=== PATIENT | female | born 1955 | race Caucasian/White ===

== ENCOUNTER → 2016-07-30 | Outpatient (CLI) | payer OTHER ==
--- NOTE | 2016-08-04 09:34 | CT ---
EXAM DESCRIPTION: Abdomen/Pelvis w/wo Contrast CLINICAL HISTORY: MICROSCOPIC HEMATURIA R31.29 COMPARISON: None. TECHNIQUE: Transaxial images were obtained pre and post menstruation of intravenous contrast medium without oral contrast media. Sagittal and coronal reconstruction was performed. FINDINGS: The lung bases are clear. Hepatic steatosis is observed. No biliary ductal dilatation is observed. The gallbladder is normal in appearance. No adrenal masses are detected. The pancreas is normal in appearance. Imaging of the kidneys reveals no evidence of hydronephrosis mass cyst or calcification. Calcific atherosclerotic changes observed in the abdominal aorta without evidence of aneurysmal dilatation. No stones are seen along the course of the distal ureters. Diverticulosis of the colon is observed without evidence of diverticulitis. The patient is post hysterectomy. No free fluid is detected. The appendix is identified and is normal in appearance. Degenerative changes are observed in the lower lumbar spine. No bladder abnormality is detected. IMPRESSION: 1. Hepatic steatosis. 2. No urinary tract calcifications are observed. 3. Uncomplicated diverticulosis. 4. Hysterectomy Electronically signed by: Mansoor Jamison MD 08/04/2016 9:34 AM [facility]
== END | disposition home or self-care (01) ==
LOC: CT 08:02
PROVIDERS: ATTEND Family Medicine
DX: R31.29 Other microscopic hematuria (principal)

== ENCOUNTER → 2017-02-25 | Outpatient (CLI) | payer OTHER | END | disposition home or self-care (01) | LOC: GMAM 13:23 | PROVIDERS: ATTEND Family Medicine | DX: E03.9 Hypothyroidism, unspecified (principal); E55.9 Vitamin D deficiency, unspecified ==

== ENCOUNTER → 2017-10-19 | Outpatient (CLI) | payer OTHER | LOC: GMAM 12:19 | PROVIDERS: ATTEND Family Medicine | DX: N95.1 Menopausal and female climacteric states (principal); E03.9 Hypothyroidism, unspecified; E55.9 Vitamin D deficiency, unspecified ==

== ENCOUNTER → 2017-11-17 | Outpatient (CLI) | payer OTHER | LOC: GMAM 17:30 | PROVIDERS: ATTEND Family Medicine | DX: E34.9 Endocrine disorder, unspecified (principal) ==

== ENCOUNTER → 2018-05-05 | Outpatient (CLI) | payer OTHER ==
--- NOTE | 2018-05-07 08:04 | RAD ---
EXAM DESCRIPTION: Knee,Left Complete CLINICAL HISTORY: 63 years Female, KNEE PAIN TECHNIQUE: 4 views of the left knee were performed. COMPARISON: None available. FINDINGS: The visualized bones appear well mineralized. No acute fracture or dislocation. Tricompartmental osteoarthritis, worse in the medial tibiofemoral compartment. There is trace suprapatellar joint effusion. The soft tissues appear grossly unremarkable. IMPRESSION: Tricompartmental osteoarthritis, worse in the medial tibiofemoral compartment. Electronically signed by: Harsha Fenton MD 05/07/2018 8:02 AM [facility]
--- NOTE | 2018-05-07 08:05 | RAD ---
EXAM DESCRIPTION: Knee,Right Complete CLINICAL HISTORY: 63 years Female, KNEE PAIN TECHNIQUE: 4 views of the right knee were performed. COMPARISON: None available. FINDINGS: The visualized bones appear well mineralized. No acute fracture or dislocation.Tricompartmental osteoarthritis, worse in the medial tibiofemoral compartment. No evidence of suprapatellar joint effusion. The soft tissues appear grossly unremarkable. IMPRESSION: Tricompartmental osteoarthritis, worse in the medial tibiofemoral compartment. Electronically signed by: Harsha Fenton MD 05/07/2018 8:03 AM [facility]
--- NOTE | 2018-05-07 08:06 | RAD ---
EXAM DESCRIPTION: Pelvis CLINICAL HISTORY: 63 years Female, BILATERAL HIP PAIN COMPARISON: None. TECHNIQUE: AP radiograph of the pelvis was performed. FINDINGS: The pelvic ring appears grossly intact on this single AP radiograph. No acute fracture or dislocation. Bilateral sacroiliac joints appear normal. Bilateral hip joints appear normal. The visualized lumbo-sacral spine demonstrates mild degenerative changes. IMPRESSION: Single AP radiograph of the pelvis demonstrates grossly intact pelvic ring. Electronically signed by: Harsha Fenton MD 05/07/2018 8:[address] [facility]
== END ==
LOC: RAD 08:20
PROVIDERS: ATTEND Orthopaedic Surgery
DX: Z01.818 Encounter for other preprocedural examination (principal); M17.11 Unilateral primary osteoarthritis, right knee; M17.12 Unilateral primary osteoarthritis, left knee; M25.561 Pain in right knee; M25.562 Pain in left knee; M25.551 Pain in right hip; M25.552 Pain in left hip

== ENCOUNTER → 2018-05-09 | Outpatient (CLI) | payer OTHER | LOC: GMAM 12:40 | PROVIDERS: ATTEND Family Medicine | DX: E03.9 Hypothyroidism, unspecified (principal); E55.9 Vitamin D deficiency, unspecified ==

== ENCOUNTER → 2018-12-04 | Outpatient (CLI) | payer OTHER | LOC: GMAM 15:06 | PROVIDERS: ATTEND Family Medicine | DX: E03.9 Hypothyroidism, unspecified (principal); I10 Essential (primary) hypertension; E11.9 Type 2 diabetes mellitus without complications; E55.9 Vitamin D deficiency, unspecified ==

== ENCOUNTER → 2018-12-11 | Outpatient (CLI) | payer OTHER | LOC: GMAM 11:56 | PROVIDERS: ATTEND Family Medicine | DX: R80.9 Proteinuria, unspecified (principal) ==

== ENCOUNTER → 2019-01-23 | Outpatient (CLI) | payer OTHER ==
--- NOTE | 2019-01-25 09:40 | MAM ---
EXAM DESCRIPTION: 3D Screening BILATERAL : Digital Mammography. CLINICAL HISTORY: 64 years Female SCREENING . No complaints. No personal history of breast cancer. Remote family history of breast cancer. Childbirth. Postmenopausal 25+ years currently on HRT. Lifetime risk of developing breast cancer (Tyrer-Cuzick model)(%): 4.7. COMPARISON: Baseline study at this facility.. No prior reports available. TECHNIQUE: Bilateral CC and MLO projection full-field images, digital tomosynthesis mammographic technique. Bilateral digital 2-D full-field MLO images. CAD not available for tomosynthesis or 2-D images. FINDINGS: The breast parenchymal density pattern is: Heterogeneously dense breast tissue, which may obscure small masses. No skin thickening or nipple retraction. Circumscribed mass slightly more dense fibroglandular tissues in the posterior third of the lower outer quadrant of the right breast measuring approximately 1.5 x 1.2 x 1.0 cm. Bilateral parenchymal calcifications. Focal asymmetry in the upper outer quadrant of the posterior third of the left breast almost 1 cm diameter at the 3:00 position, 6.5 cm from the nipple. IMPRESSION: BI-RADS CATEGORY: 0 - INCOMPLETE- Need additional imaging evaluation. FOLLOW-UP: Recall for additional imaging: Bilateral full-field LM diagnostic tomosynthesis images followed by bilateral targeted breast ultrasound of the regions of interest.. Written communication concerning the IMPRESSION and Follow-up, will be mailed to the patient and referring health care provider. Electronically signed by: Poncho Hartmann MD 01/25/2019 9:38 AM CDT
== END ==
LOC: MAMMO 10:00
PROVIDERS: ATTEND Family Medicine
DX: Z12.31 Encounter for screening mammogram for malignant neoplasm of breast (principal)

== ENCOUNTER → 2019-02-07 | Outpatient (CLI) | payer OTHER ==
--- NOTE | 2019-02-08 18:36 | US ---
EXAM DESCRIPTION: Breast,Bilateral: Ultrasound. CLINICAL HISTORY: 64 yearsFemaleABNORMAL MAMMO COMPARISON: Bilateral screening digital breast tomosynthesis 01/23/2019. TECHNIQUE: Transcutaneous scanning of the bilateral breasts utilizing marks-scale and Doppler modes. Scanning performed by the doctor of optometry and Dr. Hartmann. FINDINGS: Scanning of the right breast posterior third lower outer quadrant. Heterogeneous mixture of fibroglandular tissues and fatty echotexture. At the 8:00 position 6 cm from the nipple is a circumscribed anechoic mass measuring 1.6 x 1.4 x 1.2 cm with wider than tall orientation thin wall and posterior acoustic enhancement. Nonvascular. Consistent with a cyst. No dominant solid mass or large calcifications. Scanning of the left breast lateral aspect of the middle third upper outer quadrant. Mostly heterogeneous fibroglandular tissues sandwiched between fatty tissue layers. At the 3:00 position 5 cm from the nipple is a heterogeneous mass with hypoechoic and echogenic elements measuring 6.7 mm, 4.9 mm, and 6.3 mm. Color Doppler was not performed. This may represent multiple lymph nodes. No distinct cyst, no dominant solid mass, and no large calcifications. Posterior acoustics nonspecific. IMPRESSION: BI-RADS CATEGORY: 3 - PROBABLY BENIGN. Management: Short interval (6-month) follow-up diagnostic left breast tomosynthesis and targeted left breast ultrasound.. The FINDINGS and the FOLLOW-UP plan were reviewed in person with the patient after the examination. Written communication explaining the IMPRESSION and FOLLOW-UP will be mailed to the patient and referring care provider. Electronically signed by: Poncho Hartmann MD 02/08/2019 6:35 PM CDT
== END ==
LOC: MAMMO 09:06
PROVIDERS: ATTEND Family Medicine
DX: R92.2 Inconclusive mammogram (principal)

== ENCOUNTER → 2019-02-09 | Outpatient (CLI) | payer OTHER ==
--- NOTE | 2019-02-10 13:42 | US ---
EXAM DESCRIPTION: Renal: Ultrasound. CLINICAL HISTORY: 64 years Female Osteonecrosis, unspecified COMPARISON: None TECHNIQUE: Transcutaneous scanning: Two-dimensional and Doppler modes. Technically difficult study due to patient large body habitus. FINDINGS: Right kidney measures 10.5 x 5.4 x 4.8 cm; mid-renal cortical thickness normal. . Normal cortical echogenicity. No hydronephrosis No echogenic stones. Smooth contour of the kidney with no perinephric fluid. Normal vascularity. Proximal ureter not visualized.. Left kidney measures 10.4 x 5.2 x 5.1 cm; mid-renal cortical thickness normal.. Normal cortical echogenicity. No hydronephrosis. No echogenic stones. Smooth contour of the kidney with no perinephric fluid. Normal vascularity.. Proximal ureter not visualized.. Urinary bladder was visualized. Abdominal aorta: not measured. IMPRESSION: Technically difficult study due to patient large body habitus. Normal size of the patient's kidneys with normal cortical thickness bilaterally. No hydronephrosis or other ultrasound abnormalities bilaterally. Electronically signed by: Poncho Hartmann MD 02/10/2019 1:41 PM CDT
== END ==
LOC: US 10:45
PROVIDERS: ATTEND Internal Medicine Nephrology
DX: N18.4 Chronic kidney disease, stage 4 (severe) (principal)

== ENCOUNTER → 2019-05-11 | Outpatient (CLI) | payer OTHER ==
--- NOTE | 2019-05-11 09:15 | RAD ---
EXAM DESCRIPTION: Knee,Right Complete CLINICAL HISTORY: 64 years Female, RT KNEE PAIN COMPARISON: None. Findings: Four views Location: Right knee No acute fracture or dislocation. Obliteration of the medial compartment with lateral tibial translation. Patellofemoral narrowing. Tricompartmental osteophytes. Trace joint effusion. IMPRESSION: Osteoarthritis of the right knee. Electronically signed by: Shai Rojas MD 05/11/2019 9:14 AM [facility]
--- NOTE | 2019-05-11 09:15 | RAD ---
EXAM DESCRIPTION: Knee,Left Complete CLINICAL HISTORY: 64 years Female, LT KNEE PAIN COMPARISON: None. Findings: Four views Location: Left knee No acute fracture or dislocation. Obliteration of the medial compartment with lateral tibial translation. Bulky tricompartmental osteophytes. Patellofemoral narrowing with lateral patellar subluxation. No significant joint effusion. IMPRESSION: Osteoarthritis of the left knee. Electronically signed by: Shai Rojas MD 05/11/2019 9:13 AM [facility]
--- NOTE | 2019-05-11 09:23 | RAD ---
EXAM DESCRIPTION: Pelvis CLINICAL HISTORY: 64 years Female, BILATERAL HIP PAIN COMPARISON: 05/05/2018 Findings: One view/radiograph Moderate right hip osteoarthritis with acetabular over coverage. Mild left hip osteoarthritis. No acute fracture or dislocation. Osteopenia. Degenerative changes in the sacroiliac joints. Similar configuration of the lumbar spinal hardware, with contour irregularity of the distal left L5 pedicle screw (possibly fractured). IMPRESSION: Chronic and degenerative changes. No acute fracture. Electronically signed by: Shai Rojas MD 05/11/2019 9:21 AM [facility]
== END ==
LOC: RAD 08:02
PROVIDERS: ATTEND Orthopaedic Surgery
DX: M16.0 Bilateral primary osteoarthritis of hip (principal); M47.898 Other spondylosis, sacral and sacrococcygeal region; M17.0 Bilateral primary osteoarthritis of knee

== ENCOUNTER → 2019-05-12 | Outpatient (CLI) | payer OTHER ==
--- NOTE | 2019-05-13 09:53 | RAD ---
EXAM: Chest,2 Views CLINICAL HISTORY: PREOP COMPARISON STUDY: None TECHNICAL: PA and lateral chest x-ray. FINDINGS: The lungs are clear. There is no infiltrate/consolidation. There is no sign of interstitial pulmonary edema. There is no pleural effusion. The heart is not enlarged. There are mild vascular calcifications within the aortic arc. There are degenerative minimal changes of the thoracic spine. IMPRESSION: NEGATIVE ADULT CHEST X-RAY. Electronically signed by: Tanner Klein MD 05/13/2019 9:51 AM [facility]
== END ==
LOC: LAB.O 08:41
PROVIDERS: ATTEND Orthopaedic Surgery
DX: Z01.818 Encounter for other preprocedural examination (principal); I70.0 Atherosclerosis of aorta; M47.894 Other spondylosis, thoracic region

== ENCOUNTER 2019-05-29 05:36 | Inpatient (IN) | payer OTHER ==
[2019-05-29] MEDS ORDERED: TRANEXAMIC ACID 1,000 MG/10 ML VIAL ONE ×2 (05:42→06:04)
[2019-05-29] MEDS ORDERED: SODIUM CHL 0.9% 100ML MINI-BAG 100 ML IVPB ONE (05:42)
[2019-05-29] MEDS ORDERED: LACTATED RINGERS 1,000 ML ONE (05:42)
[2019-05-29] MEDS ORDERED: SODIUM CHLORIDE 0.9% 250ML 250 ML ONE ×3 (05:43→19:38)
[2019-05-29] MEDS ORDERED: VANCOMYCIN HCL INJ 1,000 MG VIAL IVPB ONE ×7 (05:43→19:39)
[2019-05-29] MEDS ORDERED: ceFAZolin SODIUM 1 GM VIAL ONE ×3 (05:43→19:39)
[2019-05-29] MEDS ORDERED: SODIUM CHLORIDE 0.9% 100ML 100 ML IVPB ONE (06:04)
[2019-05-29] MEDS ORDERED: ceFAZolin SODIUM 1 GM VIAL INJ ONE ×2 (08:00→09:00)
[2019-05-29] MEDS ORDERED: ceFAZolin SODIUM 1 GM VIAL IRRIG ONE (08:00)
[2019-05-29] MEDS: ceFAZolin SODIUM 1 GM VIAL ONE ×2 (08:00→09:00)
[2019-05-29] MEDS ORDERED: BUPIVACAINE 0.25% INJ 30 ML VIAL INJ ONE ×4 (08:01→13:53)
[2019-05-29] MEDS ORDERED: BUPIVACAINE LIPOSOME 13.3 MG/ML VIAL INJ ONE ×4 (08:01→13:53)
[2019-05-29] MEDS ORDERED: MORPHINE SULFATE INJ 10 MG/ML VIAL IV PRN ×2 (09:19→15:14)
[2019-05-29] MEDS ORDERED: TEMAZEPAM 15 MG CAP PO PRN (09:19)
[2019-05-29] MEDS ORDERED: ALUMINUM & MAGNESIUM HYDROXIDE 30 ML UD PO PRN (09:19)
[2019-05-29] MEDS ORDERED: TRANEXAMIC ACID INJ 1,000 MG in SODIUM CHLORIDE 0.9% 100ML 100 ML IVPB ONE (09:19)
[2019-05-29] MEDS ORDERED: BISACODYL SUPPOSITORY 10 MG PR PRN (09:19)
[2019-05-29] MEDS ORDERED: ACETAMINOPHEN 500 MG TAB PO PRN ×2 (09:19→15:14)
[2019-05-29] MEDS ORDERED: NALOXONE HCL INJ 0.4 MG/ML VIAL IV PRN ×2 (09:19→15:14)
[2019-05-29] MEDS ORDERED: MORPHINE SULFATE INJ 10 MG/ML VIAL IM PRN ×2 (09:19→15:14)
[2019-05-29] MEDS ORDERED: BENZOCAINE-MENTH LOZ (CEPACOL) 1 EA LOZ MT PRN (09:19)
[2019-05-29] MEDS ORDERED: PROMETHAZINE HCL INJ 12.5 MG in SODIUM CHLORIDE 0.9% 50ML 50 ML IVPB PRN ×2 (09:19→15:14)
[2019-05-29] MEDS ORDERED: SODIUM CHLORIDE 0.9% (FLUSH) 10 ML SYG IV PRN ×2 (09:19→15:14)
[2019-05-29] MEDS ORDERED: ZOLPIDEM TARTRATE 5 MG TAB PO PRN (09:19)
[2019-05-29] MEDS ORDERED: ONDANSETRON INJ 4 MG/2 ML VIAL IV PRN ×2 (09:19→15:14)
[2019-05-29] MEDS ORDERED: PROMETHAZINE HCL INJ 25 MG in SODIUM CHLORIDE 0.9% 50ML 50 ML IVPB PRN ×2 (09:19→15:14)
[2019-05-29] MEDS ORDERED: ACETAMINOPHEN 325 MG TAB PO PRN (09:19)
[2019-05-29] MEDS ORDERED: traMADol HCL 50 MG TAB PO PRN (09:19)
[2019-05-29] MEDS ORDERED: MAGNESIUM HYDROXIDE 30 ML UD PO PRN (09:19)
[2019-05-29] MEDS ORDERED: MORPHINE PCA 1 MG/ML 100 ML BAG IVPB SCH ×2 (09:30→15:30)
[2019-05-29] MEDS ORDERED: IV SET AND CAP CHANGE INJ INJ SCH ×2 (09:30→15:30)
--- NOTE | 2019-05-29 09:53 | OP ---
DATE OF PROCEDURE: 05/29/19 PREOPERATIVE DIAGNOSIS: 1. Osteoarthritis of the right knee. POSTOPERATIVE DIAGNOSIS: 1. Osteoarthritis of the right knee. PROCEDURE: 1. Right total knee arthroplasty. SURGEON: Kamaljit Wilson MD. SKIP LOCATOR: Poncho Lubin CST, SA-C. ANESTHESIA: General anesthesia. COMPLICATIONS: None. FINDINGS: Severe osteoarthritis. INDICATION: Ms. Yeboah has a history of severe knee pain which has been refractory to conservative measures. Because of the refractory nature of her pain, she has requested operative intervention. After discussing the risks, benefits and alternatives to that, the patient has given informed consent for total knee arthroplasty. PROCEDURE: The patient was brought to the Operating Room and placed in supine position. General anesthesia was induced and the patient's leg was sterilely prepped and draped. Following prepping and draping, the distal femur was exposed and using an intramedullary guide, the distal femoral cut was made. The appropriate sized cutting block was measured, pinned into place, and the anterior, posterior, and chamfer cuts were made. The ACL was transected and the tibia was subluxed. Both the medial and lateral menisci were removed. An intramedullary guide was used to make the proximal tibial cut. The appropriate sized base plate was placed and a trial polyethylene was placed. The trial femur was placed, the knee was reduced, and the knee was taken through a range of motion. The knee was stable in anterior, posterior, varus and valgus stress. The patella tracked anatomically without evidence of subluxation or dislocation. After trialing, the trial components were removed and the bony surfaces were thoroughly irrigated with saline. Following irrigation, the surfaces were dried and the final components were cemented into place. The excess cement was removed and the remaining cement was allowed to cure. The knee was again taken through a range of motion to confirm stability. The wound was then irrigated with saline and closure was performed using PDS to approximate the arthrotomy followed by closure of the subcutaneous tissues with a combination of running and interrupted Monocryl sutures. Sterile dressing was placed. The patient was awoken from anesthesia and taken to Recovery. COMPONENTS: [place] Tri[employer] knee, size 3 femur, size 2 tibia, 9 mm insert. POSTOPERATIVE PLAN: The patient will be weight-bearing as tolerated on postoperative day 1. [id number]
[2019-05-29] MEDS: HYDROmorphone HCL INJ 2 MG/ML VIAL ONE ×4 (09:57→11:00)
[2019-05-29] MEDS ORDERED: SODIUM CHLORIDE 0.9% 50 ML VIAL INJ ONE (10:00)
[2019-05-29] MEDS ORDERED: LIDOCAINE 1% 10 ML VIAL INJ ONE (10:00)
[2019-05-29] MEDS ORDERED: PROPOFOL 200 MG/20 ML VIAL IV ONE (10:00)
[2019-05-29] MEDS ORDERED: GLYCOPYRROLATE 0.2 MG/ML VIAL IV ONE (10:00)
[2019-05-29] MEDS ORDERED: MAGNESIUM SULFATE INJ 1 GM/2 ML VIAL IVPB ONE (10:00)
[2019-05-29] MEDS ORDERED: DEXAMETHASONE INJ 10 MG/ML VIAL IV ONE (10:00)
[2019-05-29] MEDS ORDERED: raNITIdine HCL INJ 25 MG/ML VIAL IV ONE (10:00)
--- NOTE | 2019-05-29 10:05 | RAD ---
EXAM DESCRIPTION: Fluoroscopy Up to 1Hr CLINICAL HISTORY: RIGHT TKA COMPARISON: 11 May 2019 TECHNIQUE: Fluoroscopy time is 2.2 seconds, dose is 0.43 mGy, one spot film. FINDINGS: Exam demonstrate placement of a right total knee arthroplasty positioning is near-anatomic. IMPRESSION: Right total knee arthroplasty. Electronically signed by: Mansoor Jamison MD 05/29/2019 10:04 AM [facility]
--- NOTE | 2019-05-29 10:06 | RAD ---
EXAM DESCRIPTION: Knee,Right 1 or 2 Views CLINICAL HISTORY: TKA COMPARISON: 11 May 2019 TECHNIQUE: AP and lateral right FINDINGS: Exam demonstrates placement of a right total knee arthroplasty. Positioning is near-anatomic. Postoperative air is observed anteriorly. IMPRESSION: New right total knee arthroplasty. Electronically signed by: Mansoor Jamison MD 05/29/2019 10:05 AM [facility]
[2019-05-29] MEDS ORDERED: KETOROLAC TROMETHAMINE INJ 30 MG/ML VIAL ONE (10:19)
[2019-05-29] MEDS ORDERED: ceFAZolin SODIUM 1 GM VIAL IVPB ONE (13:31)
[2019-05-29] MEDS ORDERED: SUGAMMADEX SODIUM 200 MG/2 ML VIAL IV ONE (13:31)
[2019-05-29] MEDS ORDERED: BUPIVACAINE 0.5% 30 ML VIAL INJ ONE (13:31)
[2019-05-29] MEDS ORDERED: ELECTROLYTE-A 1,000 ML IVS ONE (13:31)
[2019-05-29] MEDS ORDERED: KETAMINE HCL 100 MG/ML VIAL IV ONE (13:31)
[2019-05-29] MEDS ORDERED: ROCURONIUM BROMIDE 10 MG/ML VIAL IV ONE (13:31)
[2019-05-29] MEDS ORDERED: fentaNYL CITRATE INJ 50 MCG/ML AMP IV ONE (13:31)
[2019-05-29] MEDS ORDERED: MIDAZOLAM INJ 5 MG/5 ML VIAL IV ONE (13:31)
[2019-05-29] MEDS ORDERED: ACETAMINOPHEN IV 1000 MG/100 ML BOTTLE IV ONE (13:31)
[2019-05-29] MEDS ORDERED: DEXTROSE 50% 25 GM/50 ML SYG IV PRN (14:55)
[2019-05-29] MEDS ORDERED: GLUCAGON INJ 1 MG VIAL SUBCU PRN (14:55)
[2019-05-29] MEDS ORDERED: SODIUM CHL 0.9% 50ML MIN-BAG+ 0 ML IVPB ONE (16:09)
[2019-05-29] MEDS: ceFAZolin SODIUM 2 GM in SODIUM CHL 0.9% 50ML MIN-BAG+ 50 ML IVPB SCH ×2 (16:28→23:59)
[2019-05-29] MEDS: DEX 5% W/NACL 0.45% 1000ML 1,000 ML IVS PRN (16:29)
[2019-05-29] MEDS: CELECOXIB 100 MG CAP PO SCH (16:51)
[2019-05-29] MEDS: INSULIN LISPRO 100 UNITS/ML PEN SUBCU SCH ×3 (16:52→20:46)
[2019-05-29] MEDS: VANCOMYCIN HCL INJ 1,000 MG in SODIUM CHLORIDE 0.9% 250ML 250 ML IVPB SCH (17:11)
[2019-05-29] MEDS ORDERED: VANCOMYCIN HCL INJ 1,000 MG in SODIUM CHLORIDE 0.9% 250ML 250 ML IVPB SCH (18:00)
--- NOTE | 2019-05-29 19:33 | CONS ---
DATE OF CONSULTATION: 05/29/19 SUPERVISING PHYSICIAN: Darren Silveira M.D. CHIEF COMPLAINT: Right knee pain. HISTORY OF PRESENT ILLNESS: This is a 64 year-old female patient who has a history of osteoarthritis and pain in the right knee. She has tried conservative measures and they have failed to provide her any relief. She requested Dr. Kamaljit Wilson, orthopedic surgeon, for operative intervention. She was admitted today to have a right total knee arthroplasty. She had no problems intraoperatively and I am seeing her postoperatively on the Medical/Surgical Unit of the hospital. PAST MEDICAL HISTORY: 1. Hypertension. 2. Chronic bronchitis. 3. Gastroesophageal reflux disease. 4. Chronic pain affecting her low back as well as bilateral knees. 5. Osteopenia. 6. Diabetes mellitus type 2, 7. Hypothyroidism on supplementation. 8. Migraine headaches. 9. Seasonal allergies. 10. Tremors. PAST SURGICAL HISTORY: 1. Hysterectomy due to cervical cancer. 2. Lumbar fusion. OUTPATIENT MEDICATIONS: Per the EMR and awaiting verification. ALLERGIES: NALTREXONE AND TAPE. FAMILY HISTORY: Positive for lung cancer, ovarian cancer, type 2 diabetes, migraine and seasonal allergies. SOCIAL HISTORY: She is . She lives in [facility]. She has 5 children. She has a past history of cigarette smoking but quit in 2009. She drinks alcoholic beverages socially. She denies any illicit drug use. REVIEW OF SYSTEMS: As per the History of Present Illness. PHYSICAL EXAMINATION: VITAL SIGNS: Temperature 97.8, heart rate 74, blood pressure 153/79, respiratory rate 18, O2 saturation 97%. GENERAL: This is a 64 year-old female patient who is lying in her hospital bed. She is in no acute distress. HEENT: Normocephalic and atraumatic. Pupils are equal and reactive. Oropharynx is clear. NECK: Supple without mass. RESPIRATORY: Essentially clear to auscultation bilaterally. CHEST: There is equal rise and fall of the chest with inspiration and expiration. HEART: Regular rate and rhythm. GASTROINTESTINAL: Abdomen is soft, nondistended, non-tender. Bowel sounds are positive. EXTREMITIES: Bilateral pedal pulses are palpable at +2. She has an Aman wrap on her right knee that is dry and intact. It is presently in the CPM machine. SKIN: Warm and dry. NEUROLOGIC: She is awake, alert and oriented times three. Cranial nerves II- XII are grossly intact as tested. LABORATORY: Glucose 132. Urinalysis shows 100 urine protein, moderate urine blood and 3 to 5 urine RBCs. Urine drug screen is negative for everything except Benzodiazepines which is positive for Benzodiazepines. Films as per the EMR. IMPRESSION: 1. Osteoarthritis of the right knee status post right total knee arthroplasty performed by Dr. Kamaljit Wilson, orthopedic surgeon. Postoperative day #0. 2. Hypertension. 3. Chronic obstructive pulmonary disease. 4. Gastroesophageal reflux disease. 5. Chronic lower back pain. 6. Osteopenia. 7. Type 2 diabetes mellitus. 8. Hypothyroidism on supplementation. 9. Migraine headaches. 10. Seasonal allergies. PLAN: We will continue present supportive care. Orthopedic issues will be per Dr. Kamaljit Wilson, orthopedic surgeon. She will begin her physical therapy for strengthening and conditioning tomorrow. Need to decide her discharge planning and where she will do her physical therapy. I have restarted her home medications and put her on sliding scale blood sugar checks with a.c. and h.s. short acting insulin coverage. She is also on breathing treatments both p.r.n. and scheduled. She is on Lovenox for deep venous thrombosis prophylaxis as well as proton pump inhibitor for ulcer prophylaxis. I have encouraged good pulmonary hygiene and hopefully she can be discharged in the next 2 days with close followup with Dr. Wilson as well as outpatient physical therapy. [id number]
[2019-05-29] MEDS ORDERED: SODIUM CHL 0.9% 50ML MIN-BAG+ 50 ML IVPB ONE (19:38)
[2019-05-29] MEDS ORDERED: LEVOTHYROXINE SODIUM 0.025 MG TAB ONE (19:39)
[2019-05-29] MEDS ORDERED: OMEPRAZOLE CAP 20 MG CAP ONE (19:39)
[2019-05-29] MEDS ORDERED: ENOXAPARIN SODIUM 30 MG/0.3 ML SYG SUBCU ONE (19:39)
[2019-05-29] MEDS ORDERED: SODIUM CHLORIDE 0.9% 50ML 50 ML ONE (19:40)
[2019-05-29] MEDS: DOCUSATE CALCIUM 240 MG CAP PO SCH (20:20)
[2019-05-29] MEDS: GABAPENTIN 300 MG CAP PO SCH (20:20)
[2019-05-29] MEDS ORDERED: DOCUSATE CALCIUM 240 MG CAP PO SCH (21:00)
[2019-05-29] MEDS: ZOLPIDEM TARTRATE 10 MG TAB PO PRN (21:28)
[2019-05-29] MEDS: ENOXAPARIN SODIUM 30 MG/0.3 ML SYG SUBCU SCH (22:35)
[2019-05-29] MEDS ORDERED: ENOXAPARIN SODIUM 30 MG/0.3 ML SYG SUBCU SCH (23:00)
[2019-05-30] MEDS ORDERED: CYCLOBENZAPRINE HCL 5 MG TAB ONE ×2 (00:09→15:27)
[2019-05-30] MEDS: CYCLOBENZAPRINE HCL 10 MG TAB PO PRN ×2 (00:11→15:29)
[2019-05-30] MEDS: HYDROcodone 5MG/APAP 325MG 1 EA TAB PO PRN ×2 (04:05→10:49)
[2019-05-30] MEDS: VANCOMYCIN HCL INJ 1,000 MG in SODIUM CHLORIDE 0.9% 250ML 250 ML IVPB SCH (06:28)
[2019-05-30] MEDS: OMEPRAZOLE CAP 20 MG CAP PO SCH (06:29)
[2019-05-30] MEDS ORDERED: LEVOTHYROXINE SODIUM PO SCH (06:30)
[2019-05-30] MEDS: LEVOTHYROXINE SODIUM 0.025 MG TAB PO SCH (06:46)
[2019-05-30] MEDS ORDERED: SODIUM CHL 0.9% 50ML MIN-BAG+ 50 ML IVPB ONE (07:29)
[2019-05-30] MEDS ORDERED: ceFAZolin SODIUM 1 GM VIAL ONE (07:30)
[2019-05-30] MEDS: CELECOXIB 100 MG CAP PO SCH ×2 (07:43→17:29)
[2019-05-30] MEDS: INSULIN LISPRO 100 UNITS/ML PEN SUBCU SCH ×4 (07:43→21:29)
[2019-05-30] MEDS: metFORMIN HCL 500 MG TAB PO SCH (08:34)
[2019-05-30] MEDS: GABAPENTIN 300 MG CAP PO SCH ×2 (08:34→21:07)
[2019-05-30] MEDS: MAGNESIUM OXIDE 400 MG TAB PO SCH (08:34)
[2019-05-30] MEDS: CETIRIZINE HCL 10 MG TAB PO SCH (08:34)
[2019-05-30] MEDS: LOSARTAN POTASSIUM 100 MG TAB PO SCH (08:34)
[2019-05-30] MEDS: ceFAZolin SODIUM 2 GM in SODIUM CHL 0.9% 50ML MIN-BAG+ 50 ML IVPB SCH (08:34)
[2019-05-30] MEDS: NON-FORMULARY MEDICATION 1 EA MIS (Fluticasone Furoate-Vilanterol [Breo Ellipta 100-25 Mcg INH SCH (08:35)
[2019-05-30] MEDS ORDERED: MAGNESIUM OXIDE 400 MG TAB PO SCH (09:00)
[2019-05-30] MEDS ORDERED: OMEPRAZOLE PO SCH (09:00)
[2019-05-30] MEDS: ENOXAPARIN SODIUM 30 MG/0.3 ML SYG SUBCU SCH ×2 (10:49→23:16)
[2019-05-30] MEDS ORDERED: HYDROcodone 5MG/APAP 325MG 1 EA TAB PO ONE (12:42)
[2019-05-30] MEDS ORDERED: SUMAtriptan SUCCINATE INJ 6 MG/0.5 ML VIAL SUBCU ONE (12:42)
[2019-05-30] MEDS ORDERED: ASPIRIN/ACETAMINOPHEN/CAFFEINE 1 EA TAB PO ONE (12:44)
--- NOTE | 2019-05-30 15:45 | PN ---
DATE: 05/30/19 SUBJECTIVE: She is doing very well. She is up to the side of the bed with her knee bent at 90 degrees and pain is well controlled. OBJECTIVE: She is afebrile. Vital signs are stable. Dressing is clean, dry and intact. ASSESSMENT: 1. Status post total knee arthroplasty. PLAN: The plan at this point is for her to continue on weightbearing as tolerated. [facility][id number]
--- NOTE | 2019-05-30 15:56 | PN ---
DATE: 05/30/19 SUPERVISING PHYSICIAN: Darren Silveira M.D. SUBJECTIVE: The patient is sitting up on the side of her bed. Dr. Wilson is in the room seeing the patient. We discussed her pain medications as well as she does have complaints of a migraine. She will also go to the [facility] Physical Therapy Department as an outpatient when she is discharged. She has no complaints of shortness of breath, nausea or vomiting. OBJECTIVE: VITAL SIGNS: Temperature 98.1, heart rate 88, blood pressure 140/71, respiratory rate 18, O2 saturation 96% on 2 liters nasal cannula. RESPIRATORY: Essentially clear to auscultation bilaterally. CARDIAC: Regular rate and rhythm. GASTROINTESTINAL: Abdomen is soft, nondistended, non-tender. Bowel sounds are positive. EXTREMITIES: She has a dressing to her right knee that is dry and intact. Bilateral pedal pulses are palpable at +2. NEUROLOGIC: She is awake, alert and oriented times three. LABORATORY: Hemoglobin 12.2, hematocrit 37.3. All other labs and films have been reviewed via the EMR. ASSESSMENT: 1. Osteoarthritis of the right knee status post right total knee arthroplasty performed by Dr. Kamaljit Wilson, orthopedic surgeon. Postoperative day #1. 2. Hypertension. 3. Chronic obstructive pulmonary disease. 4. Gastroesophageal reflux disease. 5. Chronic lower back pain. 6. Osteopenia. 7. Type 2 diabetes mellitus. 8. Hypothyroidism on supplementation. 9. Migraine headaches. She currently has one which we will treat. 10. Seasonal allergies. PLAN: We will continue present supportive care. Orthopedic issues will be per Dr. Kamaljit Wilson, orthopedic surgeon. Dr. Wilson and the patient did discuss her discharge pain medication and that she sees a pain specialist and has a contract with him. His name is Dr. Cesar. While she is an inpatient I have increased her Beason to 7.5 every 4 hours. I am going to give her a routine dose of her migraine medications. She will go to [facility] physical therapy outpatient center after discharge. I have also ordered a walker for her to be sent to the DME supplier. Her labs are stable at this time. She will continue with physical therapy for strengthening and conditioning. Will continue to monitor closely and follow as needed. #[id number] [facility]
[2019-05-30] MEDS: HYDROcodone 7.5MG/APAP 325MG 1 EA TAB PO PRN ×2 (19:14→23:15)
[2019-05-30] MEDS: DOCUSATE CALCIUM 240 MG CAP PO SCH (21:07)
[2019-05-30] MEDS: ZOLPIDEM TARTRATE 10 MG TAB PO PRN (23:15)
[2019-05-31] MEDS: HYDROcodone 7.5MG/APAP 325MG 1 EA TAB PO PRN ×3 (03:17→11:02)
[2019-05-31] MEDS: DEX 5% W/NACL 0.45% 1000ML 1,000 ML IVS PRN (04:01)
[2019-05-31] MEDS: OMEPRAZOLE CAP 20 MG CAP PO SCH (06:16)
[2019-05-31] MEDS: LEVOTHYROXINE SODIUM 0.025 MG TAB PO SCH (06:16)
[2019-05-31] MEDS ORDERED: CYCLOBENZAPRINE HCL 5 MG TAB ONE (06:39)
[2019-05-31] MEDS: CYCLOBENZAPRINE HCL 10 MG TAB PO PRN (06:45)
[2019-05-31] MEDS: INSULIN LISPRO 100 UNITS/ML PEN SUBCU SCH ×2 (07:11→11:21)
[2019-05-31] MEDS: CELECOXIB 100 MG CAP PO SCH (07:13)
[2019-05-31] MEDS: NON-FORMULARY MEDICATION 1 EA MIS (Fluticasone Furoate-Vilanterol [Breo Ellipta 100-25 Mcg INH SCH (08:04)
[2019-05-31] MEDS: metFORMIN HCL 500 MG TAB PO SCH (08:48)
[2019-05-31] MEDS: GABAPENTIN 300 MG CAP PO SCH (08:48)
[2019-05-31] MEDS: CETIRIZINE HCL 10 MG TAB PO SCH (08:48)
[2019-05-31] MEDS: LOSARTAN POTASSIUM 100 MG TAB PO SCH (08:48)
[2019-05-31] MEDS: MAGNESIUM OXIDE 400 MG TAB PO SCH (08:49)
[2019-05-31] MEDS ORDERED: SODIUM CHLORIDE 0.9% (FLUSH) 10 ML SYG IV SCH ×2 (09:00)
[2019-05-31] MEDS: ENOXAPARIN SODIUM 30 MG/0.3 ML SYG SUBCU SCH (11:02)
[2019-05-31 13:09] VITALS: BP 120/75; TEMP 98.4; O2SAT 96
[2019-05-31] MEDS ORDERED: INFLUENZA VIRUS VACC (ADULT) 0.5 ML SYG IM ONE (13:34)
--- NOTE | 2019-06-01 08:27 | DS ---
SUPERVISING PHYSICIAN: Darren Silveira MD DISCHARGE DIAGNOSIS: 1. Osteoarthritis of the right knee status post right total knee arthroplasty performed by Dr. Kamaljit Wilson, orthopedic surgeon. Postoperative day #2. 2. Hypertension. 3. Chronic obstructive pulmonary disease. 4. Gastroesophageal reflux disease. 5. Chronic lower back pain. 6. Osteopenia. 7. Type 2 diabetes mellitus. 8. Hypothyroidism on supplementation. 9. Migraine headaches. She currently has one which we will treat. 10. Seasonal allergies. HISTORY OF PRESENT ILLNESS: This is a 64-year-old female patient who has a history of osteoarthritis and pain in the right knee. She had tried conservative measures and they have failed to provide her any relief. She requested Dr. Kamaljit Wilson, orthopedic surgeon, for operative intervention. She was admitted on the day of her surgery for a right total knee arthroplasty. She had no problems intraoperatively and she was admitted to the Medical/Surgical Floor postoperatively in stable condition. HOSPITAL COURSE: The patient had no problems in the postoperative phase. She was weaned off of her pain medications and she completed her physical therapy for strengthening and conditioning. Her home medications were restarted and she was put on sliding scale insulin protocol. Her vital signs remained stable. She will be discharged home today in stable condition. LABORATORY: Postoperative hemoglobin was 12.2 and hematocrit 37.3. Her blood sugars ran between 99 and 183. Her urinalysis showed 100 of urine protein, moderate urine blood and 3 to 5 urine RBCs. Her UDS was positive for benzodiazepines, otherwise it was negative. RADIOLOGY: X-rays are as per the EMR. DISCHARGE PLAN: Physical Therapy recommended that the patient could be discharged if she felt she was stable enough to go home. Initially on the day prior to discharge, the patient told Dr. Wilson and myself that she had a pain contract with Dr. Cesar. Dr. Wilson was to call Dr. Cesar's office to make sure that if she received any narcotics after discharge that it would not void her pain contract. She does not have a pain contract with Dr. Cesar and has not seen him for several years. Dr. Rogel actually stopped her [place] approximately 2 years ago. She has been taking tramadol and actually got it refilled from him approximately 2 weeks ago. After various phone calls, Dr. Rogel agreed to give her 10 days of [place] 7.5 q.6h., #40 with no refills. The patient was instructed that if she needed any further refills of the [place], she would have to sign a pain contract with Dr. Rogel. After she was discharged and prior to leaving the hospital, the patient was somewhat upset because initially she was adamant about discharge and then after discharge, she complained that she may have been discharged too early. After discussing at length with the patient and getting her medications filled, she wished to be discharged. In addition to her routine home medications, she was also to get cyclobenzaprine, 9 days of Xarelto as well as hydrocodone. She was to be discharged in stable condition and increase her activity as per physical therapy. She does have a physical therapy appointment tomorrow at [facility]. She is to followup with Dr. Wilson as instructed within the next 2 weeks. She is to call Dr. Wilson's office or return to the hospital for any problems or complications. DISCHARGE MEDICATIONS: 1. Tramadol. 2. Zolpidem. 3. Metformin. 4. Levothyroxine. 5. Omeprazole. 6. Sumatriptan. 7. Zofran. 8. Gabapentin. 9. Breo. 10. Repatha. 11. Estrogen. 12. Clonazepam. 13. Parafon Forte. 14. Albuterol. 15. Zanaflex. 16. Vitamin D3. 17. Zyrtec. 18. Cyclobenzaprine. 19. Hydrocodone. 20. Xarelto. #[id number] MTDD
--- NOTE | 2019-06-01 13:11 | PN ---
DATE: 05/31/19 SUBJECTIVE: She is doing well and her pain seems to be well controlled. OBJECTIVE: She is afebrile. Vital signs are stable. The wound is clean. There are no signs or symptoms of infection. ASSESSMENT: Status post total knee arthroplasty. PLAN: The plan is to continue weightbearing as tolerated. We will likely discharge her today. #[id number] MTDD
[2019-06-01] MEDS ORDERED: BISACODYL SUPPOSITORY 10 MG PR ONE ×2 (21:00)
[2019-06-01] MEDS ORDERED: MAGNESIUM HYDROXIDE 30 ML UD PO ONE ×2 (21:00)
[2019-06-05] MEDS ORDERED: EVOLOCUMAB INJ SCH (09:00)
== END 2019-05-31 14:30 | disposition home or self-care (01) | DRG 470 ==
LOC: AMB 05:36 → MS 11:20
PROVIDERS: ADMIT Orthopaedic Surgery; ATTEND Nurse Practitioner Acute Care
PROC: 0SRC0J9 Replacement of Right Knee Joint with Synthetic Substitute, Cemented, Open Approach (ICD-10-PCS; principal; 2019-05-29 06:56)
DX: M17.11 Unilateral primary osteoarthritis, right knee (principal); G43.909 Migraine, unspecified, not intractable, without status migrainosus; I10 Essential (primary) hypertension; E11.9 Type 2 diabetes mellitus without complications; J44.9 Chronic obstructive pulmonary disease, unspecified; K21.9 Gastro-esophageal reflux disease without esophagitis; G89.29 Other chronic pain; M54.5 Low back pain; M85.80 Other specified disorders of bone density and structure, unspecified site; E03.9 Hypothyroidism, unspecified; J30.2 Other seasonal allergic rhinitis; R25.1 Tremor, unspecified; Z98.1 Arthrodesis status; Z88.8 Allergy status to other drugs, medicaments and biological substances; Z87.891 Personal history of nicotine dependence

== ENCOUNTER → 2019-12-10 | Outpatient (CLI) | payer OTHER | LOC: GMAM 10:31 | PROVIDERS: ATTEND Family Medicine | DX: E03.9 Hypothyroidism, unspecified (principal); I10 Essential (primary) hypertension; E11.9 Type 2 diabetes mellitus without complications; E78.2 Mixed hyperlipidemia; E55.9 Vitamin D deficiency, unspecified ==

== ENCOUNTER → 2020-03-03 | Outpatient (CLI) | payer OTHER | LOC: YCFC.O 16:46 | PROVIDERS: ATTEND Nurse Practitioner | DX: Z20.828 Contact with and (suspected) exposure to other viral communicable diseases (principal) ==

== ENCOUNTER → 2020-05-13 | Outpatient (CLI) | payer OTHER | LOC: GMAM 15:00 | PROVIDERS: ATTEND Family Medicine | DX: E53.8 Deficiency of other specified B group vitamins (principal); E03.9 Hypothyroidism, unspecified; I10 Essential (primary) hypertension; E11.9 Type 2 diabetes mellitus without complications; E55.9 Vitamin D deficiency, unspecified; E78.2 Mixed hyperlipidemia ==